=== PATIENT | female | born 1965 | race Caucasian/White ===

== ENCOUNTER 2017-02-04 21:51 | Emergency (ER) | payer OTHER ==
[~2017-02-04] VITALS: Ht 170.2 cm; Wt 77.1 kg
[2017-02-04] MEDS ORDERED: DULERA 200 MCG/13 GM INH (22:07)
[2017-02-04] MEDS ORDERED: ULTRAM 50MG TAB50 MG PO (22:08)
[2017-02-04] MEDS ORDERED: ZYRTEC10 M4 PO (22:08)
[2017-02-04 23:07] LABS: ABSOLUTE NEUTROPHILS 6.8 thou/uL (1.4-8.2); BASOPHILS 0.8 % (0.0-2.0); EOSINOPHILS 1.9 % (0.0-3.0); HEMATOCRIT 39.1 % (37.0-47.0); HEMOGLOBIN 13.5 gm/dL (12.0-15.0); LYMPHOCYTES 32.4 % (24.0-44.0); MCHC 34.5 g/dL (28.0-37.0); MCV 89.8 fL (80.0-100.0); MONOCYTES 7.7 % (1.0-8.0); PLATELET COUNT 408 thou/uL (150-400); POLYS 57.2 % (36.0-66.0); RBC 4.36 mil/uL (4.20-5.00); RDW 12.8 % (10.5-14.5)
[2017-02-04 23:08] LABS: MANUAL DIFF NO
[2017-02-04 23:19] LABS: CREATININE 0.7 mg/dL (0.6-1.0); POTASSIUM 3.9 mmol/L (3.5-5.1)
[2017-02-04 23:22] LABS: APTT 24.1 Seconds (24.5-32.8); PROTIME 10.1 Seconds (9.3-11.4)
[2017-02-04 23:23] LABS: ALBUMIN 3.5 g/dL (3.4-5.0); TOTAL BILIRUBIN 0.3 mg/dL (<0.1-1.0); TOTAL PROTEIN 7.1 g/dL (6.4-8.2)
[2017-02-04] MEDS ORDERED: NORCO 5-325 TA1 EACH PO (23:58)
[2017-02-05] MEDS ORDERED: PERCOCET 5-3251 EACH PO (00:20)
[2017-02-05 00:24] VITALS: BP 128/77
== END 2017-02-05 00:26 | disposition home or self-care (01) ==
LOC: ER 21:51
PROVIDERS: Emergency Medicine
DX: S80.02XA Contusion of left knee, initial encounter (principal); G89.18 Other acute postprocedural pain; M25.561 Pain in right knee; Z88.5 Allergy status to narcotic agent; Z88.0 Allergy status to penicillin; Z98.890 Other specified postprocedural states; X58.XXXA Exposure to other specified factors, initial encounter; Y93.89 Activity, other specified; Y92.89 Other specified places as the place of occurrence of the external cause; Y99.8 Other external cause status

== ENCOUNTER 2018-12-16 00:09 | Emergency (ER) | payer OTHER, BC ==
[~2018-12-16] VITALS: Ht 170.2 cm; Wt 76.2 kg
[~2018-12-16 00:09] MED LIST: DULERA 200 MCG/13 GM INH; NORCO 5-325 TA1 EACH PO; PERCOCET 5-3251 EACH PO; ULTRAM 50MG TAB50 MG PO; ZYRTEC10 M4 PO
[2018-12-16 00:47] LABS: ABSOLUTE NEUTROPHILS 6.3 thou/uL (1.4-8.2); BASOPHILS 0.7 % (0.0-2.0); EOSINOPHILS 3.8 % (0.0-3.0); HEMATOCRIT 39.9 % (37.0-47.0); HEMOGLOBIN 13.9 gm/dL (12.0-15.0); LYMPHOCYTES 35.9 % (24.0-44.0); MCH 30.6 pg (26.0-34.0); MCHC 34.8 g/dL (28.0-37.0); MCV 87.9 fL (80.0-100.0); MONOCYTES 7.1 % (1.0-8.0); PLATELET COUNT 386 thou/uL (150-400); POLYS 52.5 % (36.0-66.0); RBC 4.53 mil/uL (4.20-5.00); RDW 12.8 % (10.5-14.5)
[2018-12-16 00:55] LABS: ANION GAP 10 mmol/L (7-16); BUN 18 mg/dL (7-18); CALCIUM 8.9 mg/dL (8.5-10.1); CHLORIDE 102 mmol/L (98-107); CO2 27 mmol/L (21-32); CREATININE 0.9 mg/dL (0.6-1.0); GLUCOSE 208 mg/dL (74-106); POTASSIUM 3.5 mmol/L (3.5-5.1); SODIUM 139 mmol/L (136-145)
[2018-12-16 01:04] LABS: ALBUMIN 3.6 g/dL (3.4-5.0); SGOT 15 U/L (15-37); SGPT 22 U/L (30-65); TOTAL BILIRUBIN 0.2 mg/dL (<0.1-1.0); TOTAL PROTEIN 6.8 g/dL (6.4-8.2); TROPONIN-I <0.06 ng/mL (<0.06)
[2018-12-16] MEDS ORDERED: LEVAQUIN 500 M500 MG PO (03:17)
[2018-12-16 03:30] VITALS: BP 122/72
--- NOTE | 2018-12-16 16:53 | EKG ---
[address] [place] [address] ELECTROCARDIOGRAM REPORT Name: HEMANT GUTIERREZ Room #: DEP [facility]#: [id number] ������������������ Admission: 12/16/18 ������������������ Attend Phys: Discharge: 12/16/18 ������������������ Date of : 63 Report #: [id number] ����������������������������������������������������������������� [id number] THIS REPORT FOR: //name// [facility] ED Test Date: 2018-12-16 Test Time: 00:17:53 Pat Name: HEMANT GUTIERREZ Department: Room: Gender: F Color P[employer] Mixer: JEROD : 1965 Requested By: Madelyn Lam Order Number: [id number] MD: Cirilo Clinton Measurements Intervals [place] Rate: 86 P: 65 [place]: 165 QRS: -13 QRSD: 86 T: 71 QT: 384 QTc: 460 Interpretive Statements Sinus rhythm Left ventricular hypertrophy No previous ECG available for comparison Electronically Signed On 12-16-2018 16:53:20 CDT by Cirilo Clinton [email or web address] ��������������������������������������������� <ELECTRONICALLY SIGNED> ���������������������������������������� By: Cirilo Clinton MD, [facility] ��������������������������������������������� 12/16/18 1653 0017 0017 Cirilo Clinton MD, FACC /EPI
== END 2018-12-16 03:31 | disposition home or self-care (01) ==
LOC: ER 00:09
PROVIDERS: Student in an Organized Health Care Education/Training Program
DX: J18.8 Other pneumonia, unspecified organism (principal); Z87.891 Personal history of nicotine dependence; Z88.5 Allergy status to narcotic agent; Z88.0 Allergy status to penicillin